=== PATIENT | female | born 2000 | race Caucasian/White ===

== ENCOUNTER 2024-10-30 09:49 | Emergency (ER) | payer SELFPAY ==
[~2024-10-30] VITALS: Ht 160 cm; Wt 61.4 kg
[2024-10-30 10:08] VITALS: O2SAT 99
[2024-10-30 10:12] VITALS: BP 109/68; PULSE 80; RESP 18; TEMP 99; O2SAT 100
== END 2024-10-30 11:08 | disposition left against medical advice (07) ==
LOC: ER 10:47
DX: K59.00 Constipation, unspecified (principal); Z53.21 Procedure and treatment not carried out due to patient leaving prior to being seen by health care provider